=== PATIENT | male | born 1955 | race Caucasian/White ===

== ENCOUNTER 2018-11-28 13:34 | Emergency (ER) | payer MEDICARE, MEDICAID ==
[2018-11-28 14:02] VITALS: BP 115/66
--- NOTE | 2018-11-28 14:26 | EDM.PDOCBH ---
ED HPI GENERAL MEDICAL PROBLEM - General Chief Complaint: Behavioral/Psych Stated Complaint: FELL Time Seen by Provider: 11/28/18 13:36 Source of Information: Reports: Patient History Limitations: Reports: No Limitations - History of Present Illness INITIAL COMMENTS - FREE TEXT/NARRATIVE: History of present illness: []Patient fell yesterday hitting his head without any loss of consciousness. He denies any headache, vomiting, change in vision. Patient has no health problems and was brought in by [facility] to be transported to [place]. He is not suicidal or homicidal and he is able to care for himself. He dressed himself this morning and is drinking milk in the room. Review of systems: As per history of present illness and below otherwise all systems reviewed and negative. Past medical history: As per history of present illness and as reviewed below otherwise noncontributory. Surgical history: As per history of present illness and as reviewed below otherwise noncontributory. Social history: No reported history of drug or alcohol abuse. Family history: As per history of present illness and as reviewed below otherwise noncontributory. Physical exam: General: Well developed, well nourished in NAD HEENT: Atraumatic, normocephalic, pupils reactive, negative for conjunctival pallor or scleral icterus, mucous membranes moist, throat clear, neck supple, nontender, trachea midline. Lungs: Clear to auscultation, breath sounds equal bilaterally, chest nontender. Heart: S1S2, regular, negative for clicks, rubs, or JVD. Abdomen: NABS, Soft, nondistended, nontender. Negative for masses or hepatosplenomegaly. Negative for costovertebral tenderness. Pelvis: Stable nontender. Genitourinary: Deferred. Rectal: Deferred. Extremities: Atraumatic, negative for cords or calf pain. Neurovascular unremarkable. Neuro: Awake, alert, Cranial nerves II through XII unremarkable. Cerebellum unremarkable. Motor and sensory unremarkable throughout. Exam nonfocal. Skin:warm and dry Diagnostics: None Therapeutics: None ED Course: Stable Impression: Medical Screening exam Prescriptions: None Plan: Take meds as directed, follow up with your primary care physician, return to ER if symptoms worsen or change. Definitive disposition and diagnosis as appropriate pending reevaluation and review of above. - Related Data Allergies Allergy/AdvReac Type Severity Reaction Status Date / Time No Known Allergies Allergy Verified 11/28/18 13:56 Home Meds: Home Meds Benztropine Mesylate 4 mg PO BID 11/28/18 [History] Past Medical History Psychiatric History: Reports: Schizophrenia Other Psychiatric History: Paranoid type - Infectious Disease History Infectious Disease History: Reports: None Social & Family History - Family History Family Medical History: Noncontributory - Tobacco Use Smoking Status *Q: Current Every Day Smoker Years of Tobacco use: 5 Packs/Tins Daily: 0.5 - Caffeine Use Caffeine Use: Reports: Coffee, Energy Drinks, Soda, Tea - Recreational Drug Use Recreational Drug Use: No ED ROS GENERAL - Review of Systems Review Of Systems: See Below ED EXAM, BEHAVIORAL HEALTH - Physical Exam Exam: See Below COURSE, BEHAVIORAL HEALTH COMP - Course Vital Signs: Last Vital Signs Temp Pulse Resp 20 11/28/18 13:58 BP 115/66 11/28/18 13:58 Pulse Ox Departure - Departure Time of Disposition: 14:23 Disposition: Home, Self-Care 01 Condition: Good Clinical Impression: Encounter for medical screening examination - Discharge Information *PRESCRIPTION DRUG MONITORING PROGRAM REVIEWED*: No *COPY OF PRESCRIPTION DRUG MONITORING REPORT IN PATIENT [place]: No Referrals: PCP,Unknown [Primary Care Provider] - Additional Instructions: The following information is given to patients seen in the emergency department who are being discharged to home. This information is to outline your options for follow-up care. We provide all patients seen in our emergency department with a follow-up referral. The need for follow-up, as well as the timing and circumstances, are variable depending upon the specifics of your emergency department visit. If you don't have a primary care physician on staff, we will provide you with a referral. We always advise you to contact your personal physician following an emergency department visit to inform them of the circumstance of the visit and for follow-up with them and/or the need for any referrals to a consulting specialist. The emergency department will also refer you to a specialist when appropriate. This referral assures that you have the opportunity for follow-up care with a specialist. All of these measure are taken in an effort to provide you with optimal care, which includes your follow-up. Under all circumstances we always encourage you to contact your private physician who remains a resource for coordinating your care. When calling for follow-up care, please make the office aware that this follow-up is from your recent emergency room visit. If for any reason you are refused follow-up, please contact the [facility] Emergency Department at and asked to speak to the emergency department charge nurse. Take meds as directed, follow up with your primary care physician, return to ER if symptoms worsen or change. [facility] Primary [facility] [address] [place] [id number]
== END 2018-11-28 14:40 | disposition home or self-care (01) ==
LOC: MW.ED 13:34
DX: Z04.3 Encounter for examination and observation following other accident (principal); F17.210 Nicotine dependence, cigarettes, uncomplicated
CPT/HCPCS: 99282

== ENCOUNTER 2018-11-30 20:15 | Emergency (ER) | payer MEDICARE, MEDICAID ==
[2018-11-30 20:46] VITALS: BP 130/70
--- NOTE | 2018-11-30 21:25 | EDM.PDOC ---
ED HPI GENERAL MEDICAL PROBLEM - General Chief Complaint: Behavioral/Psych Stated Complaint: PT IS NOT EATING AND NEED MEDS Time Seen by Provider: 11/30/18 20:53 - History of Present Illness INITIAL COMMENTS - FREE TEXT/NARRATIVE: HISTORY AND PHYSICAL: History of present illness: The patient is a 63-year-old male who is here with the local web consultant as well as his court appointed guardian and is here again after an earlier visit this afternoon for placement for inpatient psychiatric care. The patient has not been taking his medications and has deteriorated psychologically according to [facility] and is guardian at bedside and he was sent here earlier to be placed at [facility] for inpatient care. According to the guardian he normally is functioning and does activities such as shopping at the grocery store and take good care of himself and eats and drinks normally but over the last month and a half when he is not taking his medications he is deteriorating. He has not taken his meds and is refusing care at [facility]. He has an underlying diagnosis of schizophrenia. The patient has no medical complaints such as fever chills chest pain shortness of breath nausea or vomiting. He has been hydrating. He was seen here earlier today and had a full medical workup and he was medically cleared but he would not be accepted by the psychiatrist Dr. Garcia due to some confusion about the circumstances and the need for inpatient care. The patient is not suicidal homicidal nor is he aggressive. Court appointed guardian as at bedside giving me information and says that he does live in a group situation but has his own apartment and she has watched him steadily decline over the last month and a half and he has failed outpatient treatment. She along with her team of caregivers feel that inpatient is necessary to turn him around. Review of systems: As per history of present illness and below otherwise all systems reviewed and negative. Past medical history: As per history of present illness and as reviewed below otherwise noncontributory. Surgical history: As per history of present illness and as reviewed below otherwise noncontributory. Social history: No reported history of drug or alcohol abuse. Family history: As per history of present illness and as reviewed below otherwise noncontributory. Physical exam: HEENT: Atraumatic, normocephalic, pupils reactive, negative for conjunctival pallor or scleral icterus, mucous membranes moist, throat clear, neck supple, nontender, trachea midline. Lungs: Clear to auscultation, breath sounds equal bilaterally, chest nontender. Heart: S1S2, regular rate and rhythm no overt murmurs Abdomen: Soft, nondistended, nontender. NABS Negative for costovertebral tenderness. Pelvis: Stable nontender. Genitourinary: Deferred. Rectal: Deferred. Extremities: Atraumatic, negative for cords or calf pain. Neurovascular unremarkable. No pedal edema Neuro: Awake, alert, oriented. Cranial nerves II through XII unremarkable. Cerebellum unremarkable--gait steady. Motor and sensory unremarkable throughout. Exam nonfocal. Diagnostics: All medical clearance exam labs performed earlier and were reviewed by me Therapeutics: None 2119: After a lengthy discussion with the psychiatrist on-call now at [facility], Dr. Colvin, and dialogue between the psychiatrist and the patient's guardian he is accepted at [facility] and the psychiatrist is aware that we will send all of the previous labs as they were just performed a few hours ago. We will do a transfer via the [facility]. Impression: Schizophrenia with failure of outpatient treatment and deterioration of mental status Definitive disposition and diagnosis as appropriate pending reevaluation and review of above. - Related Data Allergies Allergy/AdvReac Type Severity Reaction Status Date / Time No Known Allergies Allergy Verified 11/30/18 20:42 Home Meds: Home Meds Benztropine [Cogentin] 4 mg PO BID 11/30/18 [History] Perphenazine 1 tab PO BEDTIME 11/30/18 [History] Perphenazine 4 mg PO PCBREAKFAST 11/30/18 [History] Past Medical History Psychiatric History: Reports: Schizophrenia Other Psychiatric History: Paranoid type - Infectious Disease History Infectious Disease History: Reports: None Social & Family History - Family History Family Medical History: Noncontributory - Tobacco Use Smoking Status *Q: Unknown Ever Smoked - Caffeine Use Caffeine Use: Reports: None - Recreational Drug Use Recreational Drug Use: No ED ROS GENERAL - Review of Systems Review Of Systems: ROS reveals no pertinent complaints other than HPI. ED EXAM, GENERAL - Physical Exam Exam: See Below (See dictation) Course - Vital Signs Last Recorded V/S: Last Vital Signs Temp 36.4 C 11/30/18 20:42 Pulse 79 11/30/18 20:42 Resp 16 11/30/18 20:42 BP 130/70 11/30/18 20:42 Pulse Ox 95 11/30/18 20:42 - Orders/Labs/Meds Orders: Active Orders 24 hr Category Date Time Status Blood Glucose Check, Bedside [RC] ONETIME Care 11/30/18 21:20 Ordered Departure - Departure Time of Disposition: 21:25 Disposition: DC/Tfer to Psych Hosp/Unit [facility] Condition: Good Clinical Impression: Failure of outpatient treatment Schizophrenia Qualifiers: Schizophrenia type: unspecified Qualified Code(s): F20.9 - Schizophrenia, unspecified - Discharge Information Referrals: PCP,None [Primary Care Provider] - - My Orders Last 24 Hours: My Active Orders 11/30/18 21:20 Blood Glucose Check, Bedside [RC] ONETIME - Assessment/Plan Last 24 Hours: My Active Orders 11/30/18 21:20 Blood Glucose Check, Bedside [RC] ONETIME
== END 2018-11-30 21:56 ==
LOC: MW.ED 20:15
DX: F20.9 Schizophrenia, unspecified (principal); Z79.899 Other long term (current) drug therapy
CPT/HCPCS: 82962; 99284-25